=== PATIENT | female | born 1955 | race Caucasian/White ===

== ENCOUNTER 2020-03-23 12:59 | Outpatient (CLI) | payer MEDICARE, SELFPAY ==
--- NOTE | 2020-03-23 13:25 | MM_ITS ---
WS: [id number] BILATERAL SCREENING DIGITAL MAMMOGRAM WITH CAD HISTORY: SCREENING COMPARISON: 01/29/2019 and 12/05/2017 Bilateral CC and MLO views submitted. Computer aided detection analyzed. Breast composition: The breasts are heterogeneously dense, which may obscure small masses. No suspici ous masses, microcalcifications or architectural distortion. Benign bilateral calcifications. No dist [place]tion. MM/[place] [id number] IMPRESSION: BI-RADS: 2-Benign FOLLOW UP: 1 Year Follow-up
== END 2020-03-23 13:00 | disposition home or self-care (01) ==
LOC: RADSHAW 13:04
PROVIDERS: Family Provider Internal Medicine; PCP Internal Medicine; Visit Provider Internal Medicine
DX: Z12.31 Encounter for screening mammogram for malignant neoplasm of breast (principal)
CPT/HCPCS: 77067

== ENCOUNTER 2020-05-13 08:55 | Outpatient (CLI) | payer MEDICARE, SELFPAY ==
--- NOTE | 2020-05-13 09:08 | US_ITS ---
WS: [id number] RIGHT UPPER QUADRANT ULTRASOUND HISTORY: ELEVATED LIVER ENZYMES COMPARISON: 10/15/2017 Liver: 18.6 cm in length. Moderately enlarged liver with diffuse coarse echotexture and hepatic steat osis. Attenuation from hepatic steatosis. No mass or bile duct dilatation. Gallbladder: Normally distended gallbladder with no stones or wall thickening. CBD: 0.5 cm Pancreas: Normal size and echogenicity. Right kidney: 10.0 cm in length. Normal size and echogenicity. No hydronephrosis or mass. Aorta and IVC: Unremarkable abdominal aorta and IVC. No ascites. US/US abdomen limited [id number] IMPRESSION: 1. Normal gallbladder. 2. Moderate hepatomegaly with severe hepatic steatosis. No significant change since 10/15/2017
== END 2020-05-13 08:56 | disposition home or self-care (01) ==
PROVIDERS: PCP Internal Medicine; Visit Provider Internal Medicine
DX: R74.8 Abnormal levels of other serum enzymes (principal); R16.0 Hepatomegaly, not elsewhere classified; K76.0 Fatty (change of) liver, not elsewhere classified
CPT/HCPCS: 76705

== ENCOUNTER 2021-05-12 06:57 | Outpatient (CLI) | payer MEDICARE, SELFPAY ==
--- NOTE | 2021-05-12 07:09 | MM_ITS ---
WS: [email or web address] Bilateral screening 3D tomosynthesis digital mammogram, 05/12/2021 Clinical Data: SCREENING Comparison: 03/23/2020, 01/29/2019, 12/05/2017, 12/24/2016, 08/01/2016, 07/05/2015, 05/28/2014, 04/30/2013, 12/26/2011, 08/04/2010, 02/13/2008. Findings: The breast parenchymal pattern shows heterogeneous density. No spiculated masses or clustered calcifi cations are seen. There are scattered benign calcifications throughout both breasts. There are no sec ondary signs of carcinoma. MM/[place] [id number] Impression: 1. Negative bilateral mammogram unchanged. 2. Recommend annual screening mammograms. BIRADS: 1-Negative FOLLOW UP: 1 Year Follow-up The CAD waterway traffic checker was used.
== END 2021-05-12 06:58 | disposition home or self-care (01) ==
LOC: RADSHAW 07:04
PROVIDERS: PCP Internal Medicine; Visit Provider Internal Medicine
DX: Z12.31 Encounter for screening mammogram for malignant neoplasm of breast (principal)
CPT/HCPCS: 77063; 77067

== ENCOUNTER 2021-11-10 08:54 | Outpatient (CLI) | payer MEDICARE, SELFPAY ==
--- NOTE | 2021-11-10 09:06 | CT_ITS ---
WS: [email or web address] CT ABDOMEN PELVIS TECHNIQUE: Contrast-enhanced CT of the abdomen and pelvis with coronal and sagittal reformatted image s. CLINICAL INFORMATION: RLQ ABDOMINAL PAIN COMPARISON: 2 nonobstructing 6 to 7 mm RIGHT calyceal tip calculi unchanged from previous. DLP: 993.[address] scans at [facility] use at least one of these dose optimization techniques: automated e xposure control; mA and/or kV adjustment per patient size (includes targeted exams where dose is matc hed to clinical indication); or iterative reconstruction. FINDINGS: Hepatomegaly. Diffuse fatty infiltration liver. Incidental LEFT hepatic cyst measuring 9 mm. Portal v ein and splenic vein are patent. Normal spleen. Moderate esophageal hiatal hernia. Slight bibasilar a telectasis. Gallbladder with phrygian cap otherwise normal in appearance. Adrenal glands are normal. Normal renal parenchymal enhancement. No hydronephrosis. Normal pancreatic parenchymal enhancement. Normal caliber abdominal aorta. Mild aortic calcification. Tiny fat-containing umbilical hernia. Mild pancolonic constipation. Normal ileocecal valve. Prior hys terectomy. Appendix is not visualized. CT/CT abdomen pelvis w con* [id number] IMPRESSION: 1. Diffuse fatty infiltration of the liver. Incidental 9 mm LEFT hepatic cyst. 2. Moderate esophageal hiatal hernia with partial intrathoracic stomach. 3. Normal renal parenchymal enhancement. No hydronephrosis. 4. Mild pancolonic constipation. No evidence of high-grade obstruction. 5. Appendix is not visualized. 6. No free fluid in the abdomen or pelvis. 7. Prior hysterectomy. 8. No other suspicious findings.
[2021-11-10] MEDS: iohexol 350 mg/mL 100 mL Btl PO (10:30)
[2021-11-10] MEDS: iohexol 350 mg/mL 100 mL Btl IV (10:31)
== END 2021-11-10 08:55 | disposition home or self-care (01) ==
LOC: RAD 08:56
PROVIDERS: PCP Internal Medicine; Visit Provider Internal Medicine
DX: K76.0 Fatty (change of) liver, not elsewhere classified; K59.09 Other constipation; Z90.710 Acquired absence of both cervix and uterus; K76.89 Other specified diseases of liver; K44.9 Diaphragmatic hernia without obstruction or gangrene
CPT/HCPCS: 74177

== ENCOUNTER 2022-08-09 13:30 | Outpatient (CLI) | payer MEDICARE, SELFPAY ==
--- NOTE | 2022-08-09 | MM_ITS ---
WS: [email or web address] BILATERAL SCREENING DIGITAL TOMOSYNTHESIS MAMMOGRAM WITH CAD HISTORY: SCREENING COMPARISON: 05/12/2021 03/23/2020 Bilateral CC and MLO views with tomosynthesis and synthetic mammography submitted. Computer aided det ection analyzed. Breast composition: The breasts are heterogeneously dense, which may obscure small masses. No suspici ous masses, microcalcifications or architectural distortion. Benign calcifications in each breast. MM/[place] [id number] IMPRESSION: BI-RADS: 2-Benign FOLLOW UP: 1 Year Follow-up
--- NOTE | 2022-08-09 14:24 | XR_ITS ---
WS: [email or web address] SCREENING DEXA SCAN [employer] CLINICAL INFORMATION: ASYMPTOMATIC POSTMENOPAUSAL COMPARISON: None. FINDINGS: The L1-L4 bone mineral density measures 0.964 g/cm2. This corresponds to a T score score of -1.8 and Z score of -0.2. Left femoral neck bone mineral density measures 0.851 g/cm2. This corresponds to a T score of -1.2 an d Z score of 0.2. Right femoral neck bone mineral density measures 0.867 g/cm2. This corresponds to a T score -1.1of an d Z score of 0.3. Mean femoral neck bone mineral density measures 0.859 g/cm2. This corresponds to a T score of -1.2 an d Z score of 0.2. XR/XR DEXA axial skeleton* [id number] IMPRESSION: Osteopenia lumbar spine. Osteopenia femoral necks. Patient's FRAX calculated 10 year probability for major osteoporotic fracture i s 11.4 % and osteoporotic hip fracture is 2.0%.
== END 2022-08-09 13:31 | disposition home or self-care (01) ==
PROVIDERS: PCP Nurse Practitioner Family; Visit Provider Internal Medicine
DX: Z12.31 Encounter for screening mammogram for malignant neoplasm of breast (principal); Z78.0 Asymptomatic menopausal state; M85.89 Other specified disorders of bone density and structure, multiple sites
CPT/HCPCS: 77063; 77067; 77080

== ENCOUNTER 2023-12-19 10:02 | Outpatient (CLI) | payer MEDICARE, SELFPAY ==
--- NOTE | 2023-12-19 10:13 | MM_ITS ---
WS: [email or web address] Bilateral screening 3D tomosynthesis digital mammogram, 12/19/2023 10:14 AM Clinical Data: SCREENING Comparison: 08/09/2022, 05/12/2021, 03/23/2020, 01/29/2019, 12/05/2017, 12/24/2016, 08/01/2016, 07/05/2015, 05/28/2014, 04/20/2013, 12/26/2011, 08/04/2010, 12/29/2007, 05/08/2007. Findings: No spiculated masses or clustered calcifications are seen. There are no secondary signs of carcinoma . There are benign calcifications and vascular calcifications in both breasts. MM/MM scr [place] tomosynthesis [id number] Impression: Negative bilateral mammogram unchanged. Recommend annual screening mammograms. BIRADS: 1 - Negative FOLLOW UP: 1 Year Follow-up DENSITY: The breasts are heterogeneously dense, which may obscure small masses. The CAD program checker was used
== END 2023-12-19 10:03 | disposition home or self-care (01) ==
LOC: RAD 10:03
PROVIDERS: PCP Nurse Practitioner Family; Visit Provider Nurse Practitioner Family
DX: Z12.31 Encounter for screening mammogram for malignant neoplasm of breast (principal); R92.1 Mammographic calcification found on diagnostic imaging of breast
CPT/HCPCS: 77063; 77067

== ENCOUNTER 2024-08-11 12:30 | Outpatient (CLI) | payer MEDICARE, SELFPAY ==
--- NOTE | 2024-08-11 12:34 | XR_ITS ---
WS: [email or web address] DEXA (DUAL ENERGY X-RAY ABSORPTIOMETRY) Bone mineral density was performed using a [facility] machine. HISTORY: POSTMENOPAUSAL COMPARISON: 08/09/2022 Lumbar spine BMD (L1-L4): 1.015 g/cm2 T score: -1.4 Z score: 0.2 Total hip BMD: Left: 0.813 g/cm2. T score: -1.5 Z score: -0.1 Right: 0.829 g/cm2. T score: -1.4 Z score: 0.1 10 year probability of a major osteoporotic fracture is 13.2%. Compared to the prior study from 08/09/2022. Lumbar spine bone mineral density has increased by 5.3%. Bilateral hips bone mineral density has decreased by 4.5%. XR/XR DEXA axial skeleton* [id number] IMPRESSION: OSTEOPENIA based upon the WHO classification for females. Significant increase in bone mineral density within the lumbar spine since the prior study. Significant decrease in bone mineral density of the hips since the prior study.
== END 2024-08-11 12:31 | disposition home or self-care (01) ==
PROVIDERS: PCP Nurse Practitioner Family; Visit Provider Nurse Practitioner Family
DX: Z78.0 Asymptomatic menopausal state (principal); M85.80 Other specified disorders of bone density and structure, unspecified site
CPT/HCPCS: 77080

== ENCOUNTER → 2024-11-24 09:33 | Outpatient (BNVA) | payer MEDICARE, SELFPAY | PROVIDERS: PCP Nurse Practitioner Family; Visit Provider Podiatrist Foot & Ankle Surgery | DX: M79.671 Pain in right foot (principal); M79.672 Pain in left foot; I10 Essential (primary) hypertension; G62.9 Polyneuropathy, unspecified | CPT/HCPCS: 73630; 99204 ==

== ENCOUNTER 2025-01-22 11:17 | Outpatient (CLI) | payer MEDICARE, SELFPAY ==
--- NOTE | 2025-01-22 11:22 | MM_ITS ---
WS: [email or web address] BILATERAL 3D TOMOSYNTHESIS DIGITAL SCREENING MAMMOGRAPHY WITH CAD CLINICAL INFORMATION: SCREENING HISTORY: Screening mammogram. No current complaints. COMPARISON: 2023 TECHNIQUE: Bilateral CC and MLO views. FINDINGS: The breasts are composed of heterogeneous fibroglandular density tissue, which can limit the detection of small underlying mass lesions. No suspicious mass, asymmetry, calcifications, or architectural distortion. No evidence of malignancy. Vascular calcification. Punctate and lucent centered calcifications. MM/MM [facility] tomosynthesis [id number] IMPRESSION: DENSITY: The breasts are heterogeneously dense, which may obscure small masses. BI-RADS: 2 - Benign FOLLOW UP: 1 Year Follow-up Recommend return to annual screening mammography.
== END 2025-01-22 11:18 | disposition home or self-care (01) ==
LOC: RAD 11:19
PROVIDERS: PCP Nurse Practitioner Family; Visit Provider Nurse Practitioner Family
DX: Z12.31 Encounter for screening mammogram for malignant neoplasm of breast (principal); R92.333 Mammographic heterogeneous density, bilateral breasts; R92.323 Mammographic fibroglandular density, bilateral breasts; R92.1 Mammographic calcification found on diagnostic imaging of breast
CPT/HCPCS: 77063; 77067